=== PATIENT | female | born 1975 | race Caucasian/White ===

== ENCOUNTER → 2025-06-14 | Day surgery (SDC) | payer MEDICAID ==
[~2025-06-14] VITALS: Ht 149.9 cm; Wt 72.6 kg
[~2025-06-14] MED LIST: ATOR20TA65 PO; BUPIVACAINE HCL/PF 0.5% (5MG/ML) 10ML ONE; CEFAZOLIN SODIUM 1000MG/VIAL ONE; FENTANYL CITRATE/PF 50MCG/ML 2ML VIAL ONE; GLYCOPYRROLATE 0.2 MG/ML 2ML VIAL ONE; METF-415 PO; METOCLOPRAMIDE HCL 10MG/2ML VIAL ONE; MIDAZOLAM HCL 2 MG/2 ML VIAL ONE; NEOSTIGMINE METHYLSULFATE 1MG/ML 10 ML VIAL ONE; ONDANSETRON HCL 4MG/2ML INJ IV PRN; ONDANSETRON HCL 4MG/2ML INJ ONE; PHENYLEPHRINE HCL 10MG/ML 1ML IV ONE; PROPOFOL 200MG/20ML VIAL IV ONE; ROCURONIUM BROMIDE 10MG/ML VIAL 5ML IV ONE; SKIN ADHESIVE 0.7 GM EA TOP ONE; SODIUM CHLORIDE 0.9% 1,000 ML IV SCH
[2025-06-14 08:23] LABS: UCG KIT EXPIRATION DATE 031127; UCG KIT LOT# 0000982192; UCG SCREEN NEGATIVE
[2025-06-14] MEDS: INSULIN LISPRO 100 UNITS/ML SUBCUT NR (09:10)
[2025-06-14] MEDS: HYDROMORPHONE HCL/PF 1MG/ML INJ IV PRN (11:21)
[2025-06-14] MEDS: ACETAMINOPHEN WITH CODEINE 300/30MG TABLET PO SCH (12:50)
[2025-06-14 15:31] VITALS: BP 113/75; PULSE 77; RESP 16
[2025-06-14] MEDS: ACETAMINOPHEN WITH CODEINE 300/30MG TABLET PO ONE (15:31)
== END | disposition home or self-care (01) ==
LOC: OR 07:35
PROVIDERS: ATTEND Surgery
DX: K80.10 Calculus of gallbladder with chronic cholecystitis without obstruction (principal); I10 Essential (primary) hypertension; K21.9 Gastro-esophageal reflux disease without esophagitis; Z79.899 Other long term (current) drug therapy; Z98.890 Other specified postprocedural states; Z86.73 Personal history of transient ischemic attack (TIA), and cerebral infarction without residual deficits; Z79.84 Long term (current) use of oral hypoglycemic drugs
CPT/HCPCS: 47562; 81025; 82962; 88304; J3010; J0665; J0690; J3490 ×2; J1815; J2765; J2250; J2405; J2371; J2704; J1171; J7030; J2710; A4606; A4217

== ENCOUNTER 2025-06-20 17:15 | Emergency (ER) | payer MEDICAID ==
[~2025-06-20] VITALS: Ht 162.6 cm; Wt 73.0 kg
[~2025-06-20 17:15] MED LIST changes: -BUPIVACAINE HCL/PF 0.5% (5MG/ML) 10ML ONE; -CEFAZOLIN SODIUM 1000MG/VIAL ONE; -FENTANYL CITRATE/PF 50MCG/ML 2ML VIAL ONE; -GLYCOPYRROLATE 0.2 MG/ML 2ML VIAL ONE; -METOCLOPRAMIDE HCL 10MG/2ML VIAL ONE; -MIDAZOLAM HCL 2 MG/2 ML VIAL ONE; -NEOSTIGMINE METHYLSULFATE 1MG/ML 10 ML VIAL ONE; -ONDANSETRON HCL 4MG/2ML INJ IV PRN; -ONDANSETRON HCL 4MG/2ML INJ ONE; -PHENYLEPHRINE HCL 10MG/ML 1ML IV ONE; -PROPOFOL 200MG/20ML VIAL IV ONE; -ROCURONIUM BROMIDE 10MG/ML VIAL 5ML IV ONE; -SKIN ADHESIVE 0.7 GM EA TOP ONE; -SODIUM CHLORIDE 0.9% 1,000 ML IV SCH
[2025-06-20 17:25] VITALS: O2SAT 99
[2025-06-20] MEDS: HYDROCODONE/ACETAMINOPHEN 5/325MG TABLET PO ONE (20:00)
[2025-06-20] MEDS: IBUPROFEN 600MG TABLET PO ONE (20:00)
[2025-06-20 20:44] LABS: BASOPHILS % 0.7 % (0.0-2.0); EOSINOPHILS % 1.2 % (0.0-5.0); HEMATOCRIT. 37.1 % (36.0-48.0); HEMOGLOBIN. 12.6 g/dL (12.0-16.0); LYMPHOCYTES % 30.0 % (20.0-50.0); MEAN PLATELET VOLUME 8.2 fl (7.4-10.4); MONOCYTES % 8.6 % (2.0-8.0); NEUTROPHILS % 59.5 % (40.0-76.0); PLATELET 426 x1000/uL (130-400); RED BLOOD CELL COUNT 4.31 mill/uL (4.2-5.4); RED CELL DISTRIBUTION WIDTH 12.4 % (11.6-14.6)
[2025-06-20 20:59] LABS: CREATININE 0.6 mg/dL (0.6-1.0)
[2025-06-20 21:00] LABS: UREA NITROGEN BLOOD 8 mg/dL (9-23)
[2025-06-20 21:01] LABS: ASPARTATE AMINOTRANSFERASE 19 IU/L (<34)
[2025-06-20 21:02] LABS: BILIRUBIN DIRECT < 0.1 mg/dL (<=3.0); BILIRUBIN TOTAL 0.4 mg/dL (0.1-1.0); PROTEIN TOTAL 8.3 g/dL (6.0-8.3)
[2025-06-20] MEDS ORDERED: IBUP-2030 MT (21:37)
[2025-06-20] MEDS ORDERED: TRAM50TA3 MT (21:37)
[2025-06-20] MEDS ORDERED: LACT-390 MT (22:48)
[2025-06-20 23:14] VITALS: BP 122/74; PULSE 94; RESP 18; TEMP 36.8; O2SAT 100
[2025-06-20] MEDS: LACTULOSE 20G/30ML UDC PO ONE (23:14)
[2025-06-20] MEDS: POLYETHYLENE GLYCOL 3350 (17GM) 1 DOSE PACK PO ONE (23:14)
== END 2025-06-20 23:16 | disposition home or self-care (01) ==
LOC: ER 17:15
DX: R10.11 Right upper quadrant pain (principal); E11.9 Type 2 diabetes mellitus without complications; Z98.890 Other specified postprocedural states; Z90.49 Acquired absence of other specified parts of digestive tract; Z79.899 Other long term (current) drug therapy; Z79.84 Long term (current) use of oral hypoglycemic drugs
CPT/HCPCS: 80076; 80048; 83690; 85025; 36415; 74018; 99284; Z7610